=== PATIENT | female | born 1970 | race Two or more races ===

== ENCOUNTER 2019-07-14 05:42 | Day surgery (SDC) | payer OTHER ==
[~2019-07-14] VITALS: Ht 152.4 cm; Wt 82.3 kg
[~2019-07-14 05:42] MED LIST: SODIUM CHLORIDE 0.9% 1,000 ML ONE
[2019-07-14] MEDS ORDERED: LIDOCAINE 4% 50 ML SOLUTION TP ONE (05:43)
[2019-07-14] MEDS ORDERED: SODIUM CHLORIDE 0.9% 1,000 ML IV ONE (07:00)
== END 2019-07-14 06:35 | disposition home or self-care (01) ==
LOC: SURGERY 05:42
PROVIDERS: ATTEND Internal Medicine Critical Care Medicine
DX: R05 Cough (principal); Z53.8 Procedure and treatment not carried out for other reasons; I10 Essential (primary) hypertension; E11.9 Type 2 diabetes mellitus without complications; E78.00 Pure hypercholesterolemia, unspecified; M19.90 Unspecified osteoarthritis, unspecified site; J45.909 Unspecified asthma, uncomplicated; Z79.899 Other long term (current) drug therapy
CPT/HCPCS: J7030